=== PATIENT | male | born 1935 | race Caucasian/White ===

== ENCOUNTER 2020-11-05 22:30 | Inpatient (IN) | payer MEDICARE ==
[~2020-11-05] VITALS: Ht 175.3 cm; Wt 65.8 kg
[2020-11-05 22:30] VITALS: BP 122/63
[~2020-11-05 22:30] MED LIST: AMLO-337 MT; ESOM10SU PO
[2020-11-05] MEDS ORDERED: MAGNESIUM/ALUMINUM HYDROXIDE/SIMETHICONE 30ML UDC PO PRN (23:45)
[2020-11-05] MEDS ORDERED: ZOLPIDEM TARTRATE 5MG TABLET PO PRN (23:45)
[2020-11-05] MEDS ORDERED: DIPHENHYDRAMINE 50MG/ML VIAL IV PRN (23:45)
[2020-11-05] MEDS ORDERED: CLONIDINE 0.1MG TABLET PO PRN (23:45)
[2020-11-05] MEDS ORDERED: MORPHINE SULFATE 2 MG/ML CPJ (NOT FOR IM USE) IV PRN (23:45)
[2020-11-05] MEDS ORDERED: HYDROCODONE/ACETAMINOPHEN 5/325MG TABLET PO PRN (23:45)
[2020-11-05] MEDS ORDERED: ONDANSETRON HCL 4MG/2ML INJ IV PRN (23:45)
[2020-11-05] MEDS ORDERED: ACETAMINOPHEN 325MG TABLET PO PRN (23:45)
[2020-11-06 07:48] VITALS: BP 136/70
[2020-11-06] MEDS: ASPIRIN 325MG EC TABLET PO SCH ×2 (08:29→16:40)
[2020-11-06] MEDS ORDERED: ENOXAPARIN 40MG/0.4ML SYR SUBCUT SCH (14:30)
[2020-11-06] MEDS ORDERED: NA PHOS,M-B/NA PHOS,DI-BA ENEMA 118ML PR PRN (14:30)
[2020-11-06] MEDS: DOCUSATE SODIUM 100MG CAPSULE PO SCH (16:39)
[2020-11-06] MEDS: BISACODYL 5MG TABLET PO PRN (16:39)
[2020-11-06 17:21] LABS: BASOPHILS % 0.4 % (0.0-2.0); EOSINOPHILS % 2.1 % (0.0-5.0); LYMPHOCYTES % 10.1 % (20.0-50.0); MEAN CORPUSCULAR HEMOGLOBIN 35.6 pg (28.0-32.0); MEAN PLATELET VOLUME 8.1 fl (7.4-10.4); MONOCYTES % 7.9 % (2.0-8.0); NEUTROPHILS % 79.5 % (40.0-76.0); PLATELET 77 x1000/uL (130-400); RED BLOOD CELL COUNT 1.98 mill/uL (4.7-6.1); RED CELL DISTRIBUTION WIDTH 21.8 % (11.6-14.6)
[2020-11-06 17:57] LABS: HEMOGLOBIN. 7.1 g/dL (14.0-18.0)
[2020-11-06 17:58] LABS: HEMATOCRIT. 20.4 % (42.0-52.0)
[2020-11-06 19:00] VITALS: BP 141/76
[2020-11-06] MEDS: FAMOTIDINE 20MG TABLET PO SCH (20:35)
[2020-11-07] MEDS: BISACODYL 5MG TABLET PO PRN ×2 (06:12→11:00)
[2020-11-07] MEDS: ACETAMINOPHEN 325MG TABLET PO PRN (06:13)
[2020-11-07 07:55] VITALS: BP 113/58
[2020-11-07] MEDS ORDERED: ENOXAPARIN 30MG/0.3ML SYR SUBCUT SCH (09:00)
[2020-11-07] MEDS ORDERED: DOCUSATE SODIUM 100MG CAPSULE PO SCH (09:00)
[2020-11-07] MEDS: ASPIRIN 325MG EC TABLET PO SCH ×2 (09:00→17:00)
[2020-11-07] MEDS: DOCUSATE SODIUM 100MG CAPSULE PO SCH ×2 (11:00→17:00)
[2020-11-07 20:00] VITALS: BP 132/68
[2020-11-07] MEDS: FAMOTIDINE 20MG TABLET PO SCH (21:33)
[2020-11-08] VITALS (12 sets, daily range): BP systolic 96–142; BP diastolic 52–72
[2020-11-08 06:14] LABS: BASOPHILS % 0.3 % (0.0-2.0); EOSINOPHILS % 2.6 % (0.0-5.0); LYMPHOCYTES % 13.3 % (20.0-50.0); MEAN CORPUSCULAR HEMOGLOBIN 33.9 pg (28.0-32.0); MEAN CORPUSCULAR VOLUME 102.1 fL (80.0-94.0); MEAN PLATELET VOLUME 7.9 fl (7.4-10.4); NEUTROPHILS % 74.8 % (40.0-76.0); PLATELET 95 x1000/uL (130-400); RED BLOOD CELL COUNT 1.85 mill/uL (4.7-6.1); RED CELL DISTRIBUTION WIDTH 21.7 % (11.6-14.6)
[2020-11-08] MEDS: ACETAMINOPHEN 325MG TABLET PO PRN ×2 (06:17→17:41)
[2020-11-08 06:33] LABS: HEMATOCRIT. 18.9 % (42.0-52.0); HEMOGLOBIN. 6.3 g/dL (14.0-18.0)
[2020-11-08] MEDS: DOCUSATE SODIUM 100MG CAPSULE PO SCH ×2 (09:45→17:00)
[2020-11-08] MEDS: ASPIRIN 325MG EC TABLET PO SCH ×2 (09:45→17:00)
[2020-11-08 13:06] LABS: CLARITY URINE CLEAR (CLEAR); COLOR URINE YELLOW (YELLOW); KETONES URINE NEGATIVE (NEGATIVE); LEUKOCYTE ESTERASE URINE NEGATIVE (NEGATIVE); NITRITE URINE NEGATIVE (NEGATIVE); OCCULT BLOOD URINE TRACE (NEGATIVE); PH URINE 5.5 (4.5-8.0); PROTEIN URINE NEGATIVE (NEGATIVE); SPECIFIC GRAVITY URINE 1.017 (1.005-1.030); UROBILINOGEN URINE 0.2 E.U./dL (0.2-1.0)
[2020-11-08] MEDS: SODIUM CHLORIDE 0.9% 1,000 ML IV SCH (13:25)
[2020-11-08 19:23] LABS: HEMATOCRIT 24.9 % (42.0-52.0); HEMOGLOBIN 8.4 g/dL (14.0-18.0)
[2020-11-09] VITALS: BP 113/63
[2020-11-09 00:45] VITALS: BP 125/66
[2020-11-09] MEDS: SODIUM CHLORIDE 0.9% 1,000 ML IV SCH ×2 (02:57→08:58)
[2020-11-09] MEDS: ACETAMINOPHEN 325MG TABLET PO PRN (06:54)
[2020-11-09 07:11] VITALS: BP 131/66
[2020-11-09 07:25] LABS: BASOPHILS % 0.4 % (0.0-2.0); EOSINOPHILS % 2.8 % (0.0-5.0); HEMATOCRIT. 27.6 % (42.0-52.0); HEMOGLOBIN. 9.3 g/dL (14.0-18.0); LYMPHOCYTES % 12.6 % (20.0-50.0); MEAN CORPUSCULAR HEMOGLOBIN 33.6 pg (28.0-32.0); MEAN CORPUSCULAR VOLUME 99.3 fL (80.0-94.0); MONOCYTES % 8.9 % (2.0-8.0); NEUTROPHILS % 75.3 % (40.0-76.0); PLATELET 116 x1000/uL (130-400); RED BLOOD CELL COUNT 2.78 mill/uL (4.7-6.1); RED CELL DISTRIBUTION WIDTH 21.2 % (11.6-14.6)
[2020-11-09 08:01] LABS: PHOSPHORUS 3.2 mg/dL (2.5-4.9)
[2020-11-09] MEDS: ASPIRIN 325MG EC TABLET PO SCH ×3 (08:12→17:00)
[2020-11-09] MEDS: DOCUSATE SODIUM 100MG CAPSULE PO SCH ×2 (08:14→16:47)
[2020-11-09] MEDS ORDERED: PANTOPRAZOLE SODIUM 40 MG/VIAL IV SCH (09:00)
[2020-11-09] MEDS: ENOXAPARIN 30MG/0.3ML SYR SUBCUT SCH (17:08)
[2020-11-09 20:00] VITALS: BP 114/59
[2020-11-10] MEDS: SODIUM CHLORIDE 0.9% 1,000 ML IV SCH (04:24)
[2020-11-10] MEDS: PANTOPRAZOLE 40MG DR TABLET PO SCH (05:53)
[2020-11-10 06:20] LABS: CHLORIDE 113 mEq/L (98-107)
[2020-11-10 06:28] LABS: PHOSPHORUS 2.5 mg/dL (2.5-4.9)
[2020-11-10 07:48] LABS: HEMATOCRIT. 24.6 % (42.0-52.0); HEMOGLOBIN. 8.4 g/dL (14.0-18.0); MEAN CORPUSCULAR HEMOGLOBIN 33.9 pg (28.0-32.0); MEAN CORPUSCULAR VOLUME 99.3 fL (80.0-94.0); MEAN PLATELET VOLUME 8.3 fl (7.4-10.4); PLATELET 118 x1000/uL (130-400); RED BLOOD CELL COUNT 2.48 mill/uL (4.7-6.1); RED CELL DISTRIBUTION WIDTH 21.1 % (11.6-14.6)
[2020-11-10 08:01] VITALS: BP 137/74
[2020-11-10] MEDS: DOCUSATE SODIUM 100MG CAPSULE PO SCH ×2 (08:21→17:12)
[2020-11-10] MEDS: ACETAMINOPHEN 325MG TABLET PO PRN (08:23)
[2020-11-10] MEDS: ASPIRIN 325MG EC TABLET PO SCH ×2 (08:26→17:00)
[2020-11-10 10:28] LABS: PLATELET ESTIMATE SLIGHTLY DECREASED
[2020-11-10] MEDS: TAMSULOSIN HCL 0.4MG SR CAPSULE PO SCH (10:58)
[2020-11-10] MEDS: ENOXAPARIN 30MG/0.3ML SYR SUBCUT SCH (17:12)
[2020-11-10 20:00] VITALS: BP 111/74
[2020-11-11 06:44] LABS: CHLORIDE 113 mEq/L (98-107)
[2020-11-11 06:50] LABS: PHOSPHORUS 2.5 mg/dL (2.5-4.9)
[2020-11-11] MEDS: PANTOPRAZOLE 40MG DR TABLET PO SCH (06:54)
[2020-11-11] MEDS: ACETAMINOPHEN 325MG TABLET PO PRN (06:54)
[2020-11-11 06:58] LABS: HEMATOCRIT. 24.9 % (42.0-52.0); HEMOGLOBIN. 8.2 g/dL (14.0-18.0); MEAN CORPUSCULAR HEMOGLOBIN 32.6 pg (28.0-32.0); MEAN CORPUSCULAR VOLUME 99.1 fL (80.0-94.0); MEAN PLATELET VOLUME 8.1 fl (7.4-10.4); PLATELET 130 x1000/uL (130-400); RED BLOOD CELL COUNT 2.51 mill/uL (4.7-6.1); RED CELL DISTRIBUTION WIDTH 20.3 % (11.6-14.6)
[2020-11-11 08:14] VITALS: BP 126/66
[2020-11-11] MEDS: DOCUSATE SODIUM 100MG CAPSULE PO SCH ×2 (08:14→17:22)
[2020-11-11] MEDS: TAMSULOSIN HCL 0.4MG SR CAPSULE PO SCH (08:16)
[2020-11-11] MEDS: ASPIRIN 325MG EC TABLET PO SCH ×2 (08:21→17:00)
[2020-11-11 14:11] LABS: PLATELET ESTIMATE NORMAL
[2020-11-11] MEDS: ENOXAPARIN 30MG/0.3ML SYR SUBCUT SCH (17:22)
[2020-11-11 20:00] VITALS: BP 145/55
[2020-11-11] MEDS: FAMOTIDINE 20MG TABLET PO SCH (22:09)
[2020-11-11] MEDS: TEMAZEPAM 15MG CAPSULE PO SCH (22:09)
[2020-11-12 07:01] LABS: HEMATOCRIT. 23.9 % (42.0-52.0); HEMOGLOBIN. 8.1 g/dL (14.0-18.0); MEAN CORPUSCULAR HEMOGLOBIN 33.5 pg (28.0-32.0); MEAN CORPUSCULAR VOLUME 98.5 fL (80.0-94.0); MEAN PLATELET VOLUME 8.1 fl (7.4-10.4); PLATELET 128 x1000/uL (130-400); RED BLOOD CELL COUNT 2.42 mill/uL (4.7-6.1); RED CELL DISTRIBUTION WIDTH 20.4 % (11.6-14.6)
[2020-11-12 07:20] LABS: CHLORIDE 111 mEq/L (98-107)
[2020-11-12 07:28] LABS: PHOSPHORUS 2.8 mg/dL (2.5-4.9)
[2020-11-12] MEDS: TAMSULOSIN HCL 0.4MG SR CAPSULE PO SCH (09:17)
[2020-11-12] MEDS: DOCUSATE SODIUM 100MG CAPSULE PO SCH ×2 (09:17→16:51)
[2020-11-12] MEDS: ASPIRIN 325MG EC TABLET PO SCH ×2 (09:17→16:51)
[2020-11-12] MEDS: FAMOTIDINE 20MG TABLET PO SCH ×2 (09:17→20:47)
[2020-11-12 11:00] VITALS: BP 100/59
[2020-11-12 13:40] LABS: PLATELET ESTIMATE SLIGHTLY DECREASED
[2020-11-12] MEDS ORDERED: TAMSULOSIN HCL 0.4MG SR CAPSULE PO SCH (15:30)
[2020-11-12] MEDS: ENOXAPARIN 30MG/0.3ML SYR SUBCUT SCH (16:51)
[2020-11-12 20:00] VITALS: BP 98/78
[2020-11-12] MEDS: TEMAZEPAM 15MG CAPSULE PO SCH (20:46)
[2020-11-13] MEDS: ACETAMINOPHEN 325MG TABLET PO PRN (06:09)
[2020-11-13 07:56] VITALS: BP 106/53
[2020-11-13] MEDS: ASPIRIN 325MG EC TABLET PO SCH ×2 (08:51→17:52)
[2020-11-13] MEDS: TAMSULOSIN HCL 0.4MG SR CAPSULE PO SCH (08:52)
[2020-11-13] MEDS: DOCUSATE SODIUM 100MG CAPSULE PO SCH ×2 (08:52→17:52)
[2020-11-13] MEDS: FAMOTIDINE 20MG TABLET PO SCH ×2 (08:52→21:31)
[2020-11-13] MEDS: ENOXAPARIN 30MG/0.3ML SYR SUBCUT SCH (17:58)
[2020-11-13 20:00] VITALS: BP 126/70
[2020-11-13] MEDS: TEMAZEPAM 15MG CAPSULE PO SCH (21:31)
[2020-11-14 06:48] LABS: BASOPHILS % 0.8 % (0.0-2.0); EOSINOPHILS % 2.5 % (0.0-5.0); HEMATOCRIT. 26.2 % (42.0-52.0); HEMOGLOBIN. 8.6 g/dL (14.0-18.0); LYMPHOCYTES % 22.2 % (20.0-50.0); MEAN CORPUSCULAR HEMOGLOBIN 33.5 pg (28.0-32.0); MEAN CORPUSCULAR VOLUME 102.3 fL (80.0-94.0); MEAN PLATELET VOLUME 8.7 fl (7.4-10.4); MONOCYTES % 8.2 % (2.0-8.0); NEUTROPHILS % 66.3 % (40.0-76.0); PLATELET 129 x1000/uL (130-400); RED BLOOD CELL COUNT 2.56 mill/uL (4.7-6.1); RED CELL DISTRIBUTION WIDTH 20.6 % (11.6-14.6)
[2020-11-14 06:51] LABS: CHLORIDE 110 mEq/L (98-107)
[2020-11-14 07:04] LABS: PHOSPHORUS 3.3 mg/dL (2.5-4.9)
[2020-11-14 08:00] VITALS: BP 120/61
[2020-11-14] MEDS: DOCUSATE SODIUM 100MG CAPSULE PO SCH ×2 (09:00→17:59)
[2020-11-14] MEDS: ASPIRIN 325MG EC TABLET PO SCH ×2 (09:52→17:00)
[2020-11-14] MEDS: FAMOTIDINE 20MG TABLET PO SCH ×2 (09:53→21:17)
[2020-11-14] MEDS: BISACODYL 5MG TABLET PO PRN ×2 (09:54→09:58)
[2020-11-14] MEDS: TAMSULOSIN HCL 0.4MG SR CAPSULE PO SCH (09:55)
[2020-11-14 20:00] VITALS: BP 101/54
[2020-11-14] MEDS: TEMAZEPAM 15MG CAPSULE PO SCH (21:17)
[2020-11-15 08:00] VITALS: BP 126/64
[2020-11-15] MEDS: FAMOTIDINE 20MG TABLET PO SCH ×2 (09:00→20:53)
[2020-11-15] MEDS: ASPIRIN 325MG EC TABLET PO SCH ×2 (09:00→16:57)
[2020-11-15] MEDS: TAMSULOSIN HCL 0.4MG SR CAPSULE PO SCH (09:01)
[2020-11-15] MEDS: DOCUSATE SODIUM 100MG CAPSULE PO SCH ×2 (09:01→16:56)
[2020-11-15] MEDS: ENOXAPARIN 30MG/0.3ML SYR SUBCUT SCH ×2 (16:57→17:00)
[2020-11-15 20:12] VITALS: BP 99/53
[2020-11-15] MEDS: TEMAZEPAM 15MG CAPSULE PO SCH (20:53)
[2020-11-15] MEDS: TRAMADOL 50MG TABLET PO PRN (23:27)
[2020-11-16 07:44] VITALS: BP 109/61
[2020-11-16] MEDS: DOCUSATE SODIUM 100MG CAPSULE PO SCH ×2 (09:00→16:13)
[2020-11-16] MEDS: TAMSULOSIN HCL 0.4MG SR CAPSULE PO SCH (09:05)
[2020-11-16] MEDS: FAMOTIDINE 20MG TABLET PO SCH ×2 (09:06→21:09)
[2020-11-16] MEDS: ASPIRIN 325MG EC TABLET PO SCH (09:06)
[2020-11-16] MEDS: TRAMADOL 50MG TABLET PO PRN (09:36)
[2020-11-16] MEDS: ENOXAPARIN 30MG/0.3ML SYR SUBCUT SCH (16:12)
[2020-11-16] MEDS: TEMAZEPAM 15MG CAPSULE PO SCH (21:09)
[2020-11-17] MEDS: FAMOTIDINE 20MG TABLET PO SCH (08:24)
[2020-11-17] MEDS: TAMSULOSIN HCL 0.4MG SR CAPSULE PO SCH (08:24)
[2020-11-17 08:25] VITALS: BP 110/58
[2020-11-17] MEDS: DOCUSATE SODIUM 100MG CAPSULE PO SCH (08:25)
[2020-11-17] MEDS: ACETAMINOPHEN 325MG TABLET PO PRN (08:31)
[2020-11-17] MEDS ORDERED: ASPIRIN 81MG EC TABLET PO SCH (09:00)
[2020-11-17 10:00] VITALS: BP 110/58
[2020-11-17] MEDS ORDERED: [UNRECOGNIZED DRUG - OTHER] (16:05)
[2020-11-17] MEDS ORDERED: PROTONIX (16:05)
== END 2020-11-17 12:54 | disposition short-term general hospital (02) | DRG 536 ==
PROVIDERS: ADMIT Psychiatry & Neurology Neurology; ATTEND Internal Medicine
PROC: 30233N1 Transfusion of Nonautologous Red Blood Cells into Peripheral Vein, Percutaneous Approach (ICD-10-PCS; principal; 2020-11-08)
DX: S72.031A Displaced midcervical fracture of right femur, initial encounter for closed fracture (principal); G93.49 Other encephalopathy; M97.9XXA Periprosthetic fracture around unspecified internal prosthetic joint, initial encounter; N17.9 Acute kidney failure, unspecified; D61.818 Other pancytopenia; D63.8 Anemia in other chronic diseases classified elsewhere; D69.6 Thrombocytopenia, unspecified; E78.00 Pure hypercholesterolemia, unspecified; E78.5 Hyperlipidemia, unspecified; F39 Unspecified mood [affective] disorder; G47.00 Insomnia, unspecified; I10 Essential (primary) hypertension; W18.39XA Other fall on same level, initial encounter; Y93.01 Activity, walking, marching and hiking; D72.819 Decreased white blood cell count, unspecified; R33.9 Retention of urine, unspecified; Y92.89 Other specified places as the place of occurrence of the external cause; Y99.8 Other external cause status; Z85.038 Personal history of other malignant neoplasm of large intestine; Z82.49 Family history of ischemic heart disease and other diseases of the circulatory system
CPT/HCPCS: 36415; 71045; 73501; 76770; 80048; 81003; 82270; 82550; 83735; 84100; 85014; 85018; 85025; 86850; 86900; 86920; 97110; 97116; 97162; 97167; 97530; 97535; C1893; C9113; J1200; J1650; J7030; P9016; A4315

== ENCOUNTER 2020-11-17 12:58 | Inpatient (IN) | payer MEDICARE ==
[~2020-11-17] VITALS: Ht 175.3 cm; Wt 65.9 kg
[2020-11-17 13:30] VITALS: BP 100/57
[2020-11-17] MEDS ORDERED: ONDANSETRON HCL 4MG/2ML INJ IV PRN (13:45)
[2020-11-17] MEDS ORDERED: CLONIDINE 0.1MG TABLET PO PRN (13:45)
[2020-11-17] MEDS ORDERED: DIPHENHYDRAMINE 50MG/ML VIAL IV PRN (13:45)
[2020-11-17] MEDS ORDERED: MAGNESIUM/ALUMINUM HYDROXIDE/SIMETHICONE 30ML UDC PO PRN (13:45)
[2020-11-17] MEDS ORDERED: NA PHOS,M-B/NA PHOS,DI-BA ENEMA 118ML PR PRN (13:45)
[2020-11-17] MEDS ORDERED: ACETAMINOPHEN 325MG TABLET PO PRN (13:45)
[2020-11-17] MEDS ORDERED: TRAMADOL 50MG TABLET PO PRN (13:45)
[2020-11-17] MEDS ORDERED: ENOXAPARIN 30MG/0.3ML SYR SUBCUT SCH (15:00)
[2020-11-17 16:00] VITALS: BP 98/49
[2020-11-17] MEDS ORDERED: [UNRECOGNIZED DRUG - OTHER] (16:05)
[2020-11-17] MEDS ORDERED: PROTONIX (16:05)
[2020-11-17] MEDS: DOCUSATE SODIUM 100MG CAPSULE PO SCH (16:33)
[2020-11-17 18:33] LABS: CHLORIDE 105 mEq/L (98-107)
[2020-11-17 20:00] VITALS: BP 97/52
[2020-11-17] MEDS ORDERED: FAMOTIDINE 20MG TABLET PO SCH (21:00)
[2020-11-17] MEDS: ACETAMINOPHEN 650MG/20.3ML UDC PO PRN (22:10)
[2020-11-18] VITALS (16 sets, daily range): BP systolic 88–121; BP diastolic 40–60
[2020-11-18 06:14] LABS: CHLORIDE 108 mEq/L (98-107)
[2020-11-18 06:39] LABS: BASOPHILS % 0.4 % (0.0-2.0); LYMPHOCYTES % 15.8 % (20.0-50.0); MEAN CORPUSCULAR VOLUME 99.3 fL (80.0-94.0); MEAN PLATELET VOLUME 8.4 fl (7.4-10.4); MONOCYTES % 5.9 % (2.0-8.0); NEUTROPHILS % 76.9 % (40.0-76.0); PLATELET 133 x1000/uL (130-400); RED BLOOD CELL COUNT 1.86 mill/uL (4.7-6.1); RED CELL DISTRIBUTION WIDTH 20.1 % (11.6-14.6)
[2020-11-18 07:52] LABS: HEMATOCRIT. 18.5 % (42.0-52.0); HEMOGLOBIN. 6.1 g/dL (14.0-18.0)
[2020-11-18] MEDS ORDERED: ASPIRIN 81MG EC TABLET PO SCH (09:00)
[2020-11-18] MEDS: PANTOPRAZOLE 40MG DR TABLET PO SCH (09:32)
[2020-11-18] MEDS: DOCUSATE SODIUM 100MG CAPSULE PO SCH ×2 (09:32→16:20)
[2020-11-18] MEDS: ACETAMINOPHEN 650MG/20.3ML UDC PO PRN (16:44)
[2020-11-18 21:08] LABS: HEMATOCRIT 25.1 % (42.0-52.0); HEMOGLOBIN 8.7 g/dL (14.0-18.0)
[2020-11-19 00:01] VITALS: BP 104/70
[2020-11-19 04:00] VITALS: BP 134/59
[2020-11-19 06:51] LABS: HEMATOCRIT 27.2 % (42.0-52.0); HEMOGLOBIN 9.1 g/dL (14.0-18.0); MEAN CORPUSCULAR HEMOGLOBIN 31.5 pg (28.0-32.0); MEAN CORPUSCULAR VOLUME 94.3 fL (80.0-94.0); PLATELET 143 x1000/uL (130-400); RED BLOOD CELL COUNT 2.89 mill/uL (4.7-6.1); RED CELL DISTRIBUTION WIDTH 19.5 % (11.6-14.6)
[2020-11-19] MEDS: DOCUSATE SODIUM 100MG CAPSULE PO SCH ×2 (08:51→16:45)
[2020-11-19] MEDS: PANTOPRAZOLE 40MG DR TABLET PO SCH (08:51)
[2020-11-19] MEDS ORDERED: ACETAMINOPHEN 650MG/20.3ML UDC PO PRN (19:00)
[2020-11-19] MEDS ORDERED: ONDANSETRON HCL 4MG/2ML INJ IV PRN (19:00)
[2020-11-19 20:21] VITALS: BP 104/56
[2020-11-20 00:19] VITALS: BP 121/66
[2020-11-20 04:00] VITALS: BP 107/58
[2020-11-20 08:00] VITALS: BP 124/70
[2020-11-20] MEDS: DOCUSATE SODIUM 100MG CAPSULE PO SCH ×2 (09:04→17:25)
[2020-11-20] MEDS: PANTOPRAZOLE 40MG DR TABLET PO SCH (09:04)
[2020-11-20 12:00] VITALS: BP 107/54
[2020-11-20] MEDS ORDERED: ZOLPIDEM TARTRATE 5MG TABLET PO PRN (14:45)
[2020-11-20 16:00] VITALS: BP 100/54
[2020-11-20 20:00] VITALS: BP 110/55
[2020-11-20 20:23] LABS: BASOPHILS % 0.4 % (0.0-2.0); HEMATOCRIT. 26.5 % (42.0-52.0); LYMPHOCYTES % 15.4 % (20.0-50.0); MEAN CORPUSCULAR HEMOGLOBIN 32.1 pg (28.0-32.0); MONOCYTES % 8.2 % (2.0-8.0); PLATELET 157 x1000/uL (130-400); RED BLOOD CELL COUNT 2.79 mill/uL (4.7-6.1); RED CELL DISTRIBUTION WIDTH 18.3 % (11.6-14.6)
[2020-11-20 20:51] LABS: CHLORIDE 107 mEq/L (98-107)
[2020-11-21] VITALS: BP 111/60
[2020-11-21 04:00] VITALS: BP 117/69
[2020-11-21 08:00] VITALS: BP 105/47
[2020-11-21] MEDS: DOCUSATE SODIUM 100MG CAPSULE PO SCH ×2 (09:51→17:22)
[2020-11-21] MEDS: PANTOPRAZOLE 40MG DR TABLET PO SCH (09:51)
[2020-11-21] MEDS: MULTIVITAMINS,THER W-MINERALS TABLET PO SCH (09:51)
[2020-11-21 12:00] VITALS: BP 112/53
[2020-11-21 16:00] VITALS: BP 119/66
[2020-11-21 20:00] VITALS: BP 99/52
[2020-11-21] MEDS ORDERED: MIRTAZAPINE 15MG TABLET PO SCH (21:00)
[2020-11-22] VITALS: BP 101/50
[2020-11-22 04:00] VITALS: BP 125/65
[2020-11-22 08:00] VITALS: BP 100/54
[2020-11-22 09:58] LABS: BASOPHILS % 0.5 % (0.0-2.0); EOSINOPHILS % 0.7 % (0.0-5.0); HEMOGLOBIN. 9.5 g/dL (14.0-18.0); LYMPHOCYTES % 15.7 % (20.0-50.0); MEAN CORPUSCULAR HEMOGLOBIN 32.1 pg (28.0-32.0); MEAN CORPUSCULAR VOLUME 94.9 fL (80.0-94.0); MEAN PLATELET VOLUME 7.5 fl (7.4-10.4); MONOCYTES % 13.4 % (2.0-8.0); NEUTROPHILS % 69.7 % (40.0-76.0); PLATELET 162 x1000/uL (130-400); RED BLOOD CELL COUNT 2.95 mill/uL (4.7-6.1); RED CELL DISTRIBUTION WIDTH 18.1 % (11.6-14.6)
[2020-11-22] MEDS: MULTIVITAMINS,THER W-MINERALS TABLET PO SCH (10:05)
[2020-11-22] MEDS: DOCUSATE SODIUM 100MG CAPSULE PO SCH ×2 (10:05→17:43)
[2020-11-22] MEDS: PANTOPRAZOLE 40MG DR TABLET PO SCH (10:05)
[2020-11-22 10:16] LABS: CHLORIDE 106 mEq/L (98-107)
[2020-11-22 12:00] VITALS: BP 101/52
[2020-11-22] MEDS ORDERED: ZOLPIDEM TARTRATE 5MG TABLET PO PRN (13:45)
[2020-11-22] MEDS: FUROSEMIDE 20MG/2ML VIAL IVP SCH (14:42)
[2020-11-22 16:00] VITALS: BP 106/59
[2020-11-22 20:00] VITALS: BP 101/52
[2020-11-23] VITALS: BP 105/49
[2020-11-23 04:00] VITALS: BP 101/60
[2020-11-23 08:00] VITALS: BP 99/51
[2020-11-23] MEDS: DOCUSATE SODIUM 100MG CAPSULE PO SCH ×2 (08:54→17:00)
[2020-11-23] MEDS: PANTOPRAZOLE 40MG DR TABLET PO SCH (08:54)
[2020-11-23] MEDS: FUROSEMIDE 20MG/2ML VIAL IVP SCH (08:55)
[2020-11-23] MEDS: MULTIVITAMINS,THER W-MINERALS TABLET PO SCH (08:55)
[2020-11-23 10:07] LABS: PROTHROMBIN TIME 11.1 sec (9.6-11.0)
[2020-11-23 12:00] VITALS: BP 101/55
[2020-11-23] MEDS ORDERED: POTASSIUM CHLORIDE 20MEQ/PACKET PO NR (15:38)
[2020-11-23 16:00] VITALS: BP 94/50
[2020-11-23 18:12] LABS: BASOPHILS % 0.5 % (0.0-2.0); EOSINOPHILS % 1.2 % (0.0-5.0); HEMATOCRIT. 28.9 % (42.0-52.0); MEAN CORPUSCULAR HEMOGLOBIN 32.8 pg (28.0-32.0); MEAN CORPUSCULAR VOLUME 95.1 fL (80.0-94.0); MEAN PLATELET VOLUME 7.8 fl (7.4-10.4); MONOCYTES % 9.5 % (2.0-8.0); NEUTROPHILS % 71.8 % (40.0-76.0); PLATELET 153 x1000/uL (130-400); RED BLOOD CELL COUNT 3.04 mill/uL (4.7-6.1); RED CELL DISTRIBUTION WIDTH 18.2 % (11.6-14.6)
[2020-11-23 18:29] LABS: CHLORIDE 106 mEq/L (98-107)
[2020-11-23 20:00] VITALS: BP 96/54
[2020-11-24] VITALS: BP 99/60
[2020-11-24 04:00] VITALS: BP 109/63
[2020-11-24 08:00] VITALS: BP 110/49
[2020-11-24] MEDS: MULTIVITAMINS,THER W-MINERALS TABLET PO SCH (08:49)
[2020-11-24] MEDS: PANTOPRAZOLE 40MG DR TABLET PO SCH (08:49)
[2020-11-24] MEDS: FUROSEMIDE 20MG/2ML VIAL IVP SCH (08:49)
[2020-11-24] MEDS: DOCUSATE SODIUM 100MG CAPSULE PO SCH ×2 (08:49→19:10)
[2020-11-24 12:00] VITALS: BP 109/62
[2020-11-24] MEDS ORDERED: TRANEXAMIC ACID 1,000 MG in SODIUM CHLORIDE 0.9% 100 ML IV NR (13:00)
[2020-11-24] MEDS ORDERED: EPINEPHRINE 1:1000 1 MG/ML AMP ONE ×2 (13:01→13:46)
[2020-11-24] MEDS ORDERED: BACITRACIN 15GM TUBE TOP ONE (13:02)
[2020-11-24] MEDS ORDERED: VANCOMYCIN HCL 1 GM/VIAL ONE ×2 (13:02→13:47)
[2020-11-24] MEDS ORDERED: BUPIVACAINE HCL/PF 0.5% (5MG/ML) 10ML ONE (13:02)
[2020-11-24] MEDS ORDERED: POLYMYXIN B SULFATE 500000 UNITS/VIAL ONE (13:03)
[2020-11-24] MEDS ORDERED: MORPHINE SULFATE/PF 1MG/ML 10ML AMP ONE (13:03)
[2020-11-24] MEDS ORDERED: GLYCOPYRROLATE 0.2 MG/ML 2ML VIAL ONE ×2 (13:35→15:58)
[2020-11-24] MEDS ORDERED: PROPOFOL 200MG/20ML VIAL IV ONE (13:35)
[2020-11-24] MEDS ORDERED: ROCURONIUM BROMIDE 10MG/ML VIAL 5ML IV ONE (13:35)
[2020-11-24] MEDS ORDERED: NEOSTIGMINE METHYLSULFATE 1MG/ML 10 ML VIAL ONE ×2 (13:35→15:58)
[2020-11-24] MEDS ORDERED: MIDAZOLAM HCL 2 MG/2 ML VIAL ONE (13:35)
[2020-11-24] MEDS ORDERED: FENTANYL CITRATE/PF 50MCG/ML 2ML VIAL ONE (13:35)
[2020-11-24] MEDS ORDERED: ROPIVACAINE HCL 10MG/ML 20 ML VIAL EPI ONE ×2 (13:46→14:26)
[2020-11-24] MEDS ORDERED: KETOROLAC 30MG/ML VIAL ONE (13:46)
[2020-11-24] MEDS ORDERED: ONDANSETRON HCL 4MG/2ML INJ ONE (14:14)
[2020-11-24] MEDS ORDERED: DEXAMETHASONE 4MG/ML 1ML VIAL ONE (14:14)
[2020-11-24] MEDS ORDERED: METOPROLOL TARTRATE 5MG/5ML VIAL IV ONE (16:10)
[2020-11-24] MEDS ORDERED: CEFAZOLIN 1000MG PREMIX 50 ML IV SCH (16:30)
[2020-11-24] MEDS ORDERED: HYDROCODONE/ACETAMINOPHEN 10/325MG TABLET PO PRN (16:30)
[2020-11-24] MEDS ORDERED: HYDROMORPHONE HCL/PF 2MG/ML CPJ IM PRN (16:30)
[2020-11-24] MEDS ORDERED: HYDROCODONE/ACETAMINOPHEN 5/325MG TABLET PO PRN (16:30)
[2020-11-24] MEDS ORDERED: KETOROLAC 30MG/ML VIAL IV PRN (16:30)
[2020-11-24] MEDS ORDERED: MEPERIDINE HCL/PF 25MG/ML CPJ IV PRN (17:15)
[2020-11-24] MEDS ORDERED: LABETALOL 5MG/ML SYR 20 MG/4 ML SYRINGE IV PRN (17:15)
[2020-11-24] MEDS ORDERED: ONDANSETRON HCL 4MG/2ML INJ IV PRN (17:15)
[2020-11-24] MEDS ORDERED: HYDROMORPHONE HCL/PF 2MG/ML CPJ IV PRN (17:15)
[2020-11-24] MEDS ORDERED: ONDANSETRON INJ IV PRN (17:30)
[2020-11-24] MEDS ORDERED: NALOXONE INJ IV PRN (17:30)
[2020-11-24] MEDS ORDERED: HYDROMORPHONE PCA 10MG/50ML IV PRN (17:30)
[2020-11-24] MEDS ORDERED: DIPHENHYDRAMINE INJ IV PRN (17:30)
[2020-11-24 20:00] VITALS: BP 106/65
[2020-11-24] MEDS: CEFAZOLIN 1000MG PREMIX 50 ML IV SCH (21:24)
[2020-11-25] VITALS (7 sets, daily range): BP systolic 75–118; BP diastolic 32–51
[2020-11-25] MEDS: CEFAZOLIN 1000MG PREMIX 50 ML IV SCH ×3 (05:32→21:55)
[2020-11-25] MEDS: MULTIVITAMINS,THER W-MINERALS TABLET PO SCH (08:33)
[2020-11-25] MEDS: DOCUSATE SODIUM 100MG CAPSULE PO SCH ×2 (08:33→17:48)
[2020-11-25] MEDS: PANTOPRAZOLE 40MG DR TABLET PO SCH (08:33)
[2020-11-25] MEDS: FUROSEMIDE 20MG/2ML VIAL IVP SCH (08:44)
[2020-11-25] MEDS: ACETAMINOPHEN 325MG TABLET PO PRN (13:38)
[2020-11-26] VITALS (13 sets, daily range): BP systolic 94–118; BP diastolic 41–61
[2020-11-26] MEDS: CEFAZOLIN 1000MG PREMIX 50 ML IV SCH ×3 (06:10→23:17)
[2020-11-26 06:28] LABS: HEMATOCRIT 22.6 % (42.0-52.0); HEMOGLOBIN 7.7 g/dL (14.0-18.0); MEAN CORPUSCULAR HEMOGLOBIN 31.6 pg (28.0-32.0); MEAN CORPUSCULAR VOLUME 92.2 fL (80.0-94.0); PLATELET 118 x1000/uL (130-400); RED BLOOD CELL COUNT 2.45 mill/uL (4.7-6.1); RED CELL DISTRIBUTION WIDTH 17.3 % (11.6-14.6)
[2020-11-26] MEDS: PANTOPRAZOLE 40MG DR TABLET PO SCH (08:42)
[2020-11-26] MEDS: DOCUSATE SODIUM 100MG CAPSULE PO SCH ×2 (08:42→17:06)
[2020-11-26] MEDS: MULTIVITAMINS,THER W-MINERALS TABLET PO SCH (08:42)
[2020-11-26] MEDS: FUROSEMIDE 20MG/2ML VIAL IVP SCH (10:19)
[2020-11-27] VITALS: BP 98/59
[2020-11-27 00:27] LABS: HEMATOCRIT 25.3 % (42.0-52.0); HEMOGLOBIN 8.7 g/dL (14.0-18.0)
[2020-11-27 04:00] VITALS: BP 127/61
[2020-11-27] MEDS: BISACODYL 5MG TABLET PO PRN (06:02)
[2020-11-27 06:27] LABS: HEMATOCRIT 24.1 % (42.0-52.0); HEMOGLOBIN 8.2 g/dL (14.0-18.0); MEAN CORPUSCULAR HEMOGLOBIN 30.8 pg (28.0-32.0); MEAN CORPUSCULAR VOLUME 91.2 fL (80.0-94.0); PLATELET 112 x1000/uL (130-400); RED BLOOD CELL COUNT 2.64 mill/uL (4.7-6.1); RED CELL DISTRIBUTION WIDTH 17.4 % (11.6-14.6)
[2020-11-27 08:00] VITALS: BP 130/65
[2020-11-27] MEDS: ASCORBIC ACID 500 MG TABLET PO SCH (10:16)
[2020-11-27] MEDS: ZINC SULFATE 220 MG ( 50 ) CAPSULE PO SCH (10:16)
[2020-11-27] MEDS: FUROSEMIDE 20MG/2ML VIAL IVP SCH (10:16)
[2020-11-27] MEDS: PANTOPRAZOLE 40MG DR TABLET PO SCH (10:16)
[2020-11-27] MEDS: DOCUSATE SODIUM 100MG CAPSULE PO SCH ×2 (10:16→20:47)
[2020-11-27] MEDS: MULTIVITAMINS,THER W-MINERALS TABLET PO SCH (10:17)
[2020-11-27 12:00] VITALS: BP 114/57
[2020-11-27 16:00] VITALS: BP 103/54
[2020-11-27 16:27] LABS: CHLORIDE 105 mEq/L (98-107)
[2020-11-27 20:00] VITALS: BP 99/53
[2020-11-27] MEDS: DIPHENHYDRAMINE 50MG/ML VIAL IV PRN (23:26)
[2020-11-28] VITALS: BP 107/54
[2020-11-28 04:00] VITALS: BP 154/64
[2020-11-28 08:00] VITALS: BP 119/56
[2020-11-28] MEDS: ZINC SULFATE 220 MG ( 50 ) CAPSULE PO SCH (09:23)
[2020-11-28] MEDS: BISACODYL 5MG TABLET PO PRN (09:23)
[2020-11-28] MEDS: FUROSEMIDE 20MG/2ML VIAL IVP SCH (09:23)
[2020-11-28] MEDS: PANTOPRAZOLE 40MG DR TABLET PO SCH (09:23)
[2020-11-28] MEDS: DOCUSATE SODIUM 100MG CAPSULE PO SCH ×2 (09:23→16:03)
[2020-11-28] MEDS: MULTIVITAMINS,THER W-MINERALS TABLET PO SCH (09:23)
[2020-11-28] MEDS: ASCORBIC ACID 500 MG TABLET PO SCH (09:23)
[2020-11-28 12:00] VITALS: BP 115/55
[2020-11-28] MEDS ORDERED: HYDROCODONE/ACETAMINOPHEN 5/325MG TABLET PO PRN (12:45)
[2020-11-28 16:00] VITALS: BP 115/57
[2020-11-28] MEDS: ACETAMINOPHEN 325MG TABLET PO PRN (16:11)
[2020-11-28 20:00] VITALS: BP 101/59
[2020-11-28] MEDS: DIPHENHYDRAMINE 50MG/ML VIAL IV PRN (21:45)
[2020-11-29] VITALS: BP 101/53
[2020-11-29 04:00] VITALS: BP 107/57
[2020-11-29 08:00] VITALS: BP 111/57
[2020-11-29] MEDS: ASCORBIC ACID 500 MG TABLET PO SCH (10:21)
[2020-11-29] MEDS: FUROSEMIDE 40MG TABLET PO SCH (10:22)
[2020-11-29] MEDS: MULTIVITAMINS,THER W-MINERALS TABLET PO SCH (10:22)
[2020-11-29] MEDS: DOCUSATE SODIUM 100MG CAPSULE PO SCH ×2 (10:22→17:59)
[2020-11-29] MEDS: PANTOPRAZOLE 40MG DR TABLET PO SCH (10:22)
[2020-11-29] MEDS: ZINC SULFATE 220 MG ( 50 ) CAPSULE PO SCH (10:23)
[2020-11-29 12:00] VITALS: BP_SYST 101; BP_SYST 107; BP_DIAS 55
[2020-11-29 16:00] VITALS: BP 105/68
[2020-11-29 20:00] VITALS: BP 98/55
[2020-11-29] MEDS ORDERED: ZOLPIDEM TARTRATE 5MG TABLET PO PRN (21:30)
[2020-11-30] VITALS: BP 104/57
[2020-11-30 06:26] VITALS: BP 111/60
[2020-11-30 08:00] VITALS: BP 107/52
[2020-11-30 08:40] LABS: BASOPHILS % 0.5 % (0.0-2.0); EOSINOPHILS % 2.5 % (0.0-5.0); HEMATOCRIT. 25.7 % (42.0-52.0); HEMOGLOBIN. 8.6 g/dL (14.0-18.0); LYMPHOCYTES % 23.5 % (20.0-50.0); MEAN CORPUSCULAR HEMOGLOBIN 30.7 pg (28.0-32.0); MEAN CORPUSCULAR VOLUME 91.6 fL (80.0-94.0); MEAN PLATELET VOLUME 7.8 fl (7.4-10.4); MONOCYTES % 6.2 % (2.0-8.0); NEUTROPHILS % 67.3 % (40.0-76.0); PLATELET 158 x1000/uL (130-400); RED BLOOD CELL COUNT 2.81 mill/uL (4.7-6.1); RED CELL DISTRIBUTION WIDTH 16.8 % (11.6-14.6)
[2020-11-30 08:50] LABS: CHLORIDE 105 mEq/L (98-107)
[2020-11-30] MEDS: ASCORBIC ACID 500 MG TABLET PO SCH (09:11)
[2020-11-30] MEDS: MULTIVITAMINS,THER W-MINERALS TABLET PO SCH (09:11)
[2020-11-30] MEDS: DOCUSATE SODIUM 100MG CAPSULE PO SCH ×2 (09:11→16:56)
[2020-11-30] MEDS: PANTOPRAZOLE 40MG DR TABLET PO SCH (09:11)
[2020-11-30] MEDS: FUROSEMIDE 40MG TABLET PO SCH (09:11)
[2020-11-30] MEDS: ZINC SULFATE 220 MG ( 50 ) CAPSULE PO SCH (09:11)
[2020-11-30 12:00] VITALS: BP 96/56
[2020-11-30 16:00] VITALS: BP 103/60
[2020-11-30] MEDS ORDERED: MIDODRINE HCL 5MG TABLET PO SCH (17:00)
== END 2020-11-30 17:41 | DRG 466 ==
LOC: 6EST 12:58 → 5WST 11-20 18:18
PROVIDERS: ADMIT Internal Medicine; ATTEND Internal Medicine
PROC: 30233N1 Transfusion of Nonautologous Red Blood Cells into Peripheral Vein, Percutaneous Approach (ICD-10-PCS; 2020-11-18)
PROC: 0SR90JZ Replacement of Right Hip Joint with Synthetic Substitute, Open Approach (ICD-10-PCS; principal; 2020-11-24)
PROC: 0SP90JZ Removal of Synthetic Substitute from Right Hip Joint, Open Approach (ICD-10-PCS; 2020-11-24)
PROC: 0QS604Z Reposition Right Upper Femur with Internal Fixation Device, Open Approach (ICD-10-PCS; 2020-11-24)
DX: M97.01XA Periprosthetic fracture around internal prosthetic right hip joint, initial encounter (principal); S72.12 Fracture of lesser trochanter of femur; S72.111A Displaced fracture of greater trochanter of right femur, initial encounter for closed fracture; C18.9 Malignant neoplasm of colon, unspecified; D63.8 Anemia in other chronic diseases classified elsewhere; E78.00 Pure hypercholesterolemia, unspecified; I10 Essential (primary) hypertension; I27.81 Cor pulmonale (chronic); K21.9 Gastro-esophageal reflux disease without esophagitis; R29.6 Repeated falls; R33.9 Retention of urine, unspecified; Z20.822 Contact with and (suspected) exposure to COVID-19; R59.9 Enlarged lymph nodes, unspecified; I27.29 Other secondary pulmonary hypertension; G47.00 Insomnia, unspecified; I34.0 Nonrheumatic mitral (valve) insufficiency; L89.159 Pressure ulcer of sacral region, unspecified stage; M16.11 Unilateral primary osteoarthritis, right hip; Z79.899 Other long term (current) drug therapy; Z85.038 Personal history of other malignant neoplasm of large intestine; Z90.5 Acquired absence of kidney
CPT/HCPCS: 36415; 71045; 72170; 73501; 76000; 80048; 80053; 82040; 83735; 83880; 84134; 84443; 84484; 85014; 85018; 85025; 85027; 86850; 86900; 86920; 87426; 88300; 93005; 93306; 93880; 93970; 97110; 97162; 97166; 97530; A6261; J0690; J1100; J1170; J1200; J1650; J1885; J1940; J2250; J2274; J2405; J2704; J2710; J2795; J3010; J3370; J3490; J7040; J7050; P9016; A4315